=== PATIENT | male | born 1950 | race Caucasian/White ===

== ENCOUNTER 2017-01-15 10:22 | Emergency (ER) | payer MEDICARE, BC ==
[2017-01-15 13:58] VITALS: BP 152/96
--- NOTE | 2017-01-15 14:39 | EDM.PDOC ---
ED HPI GENERAL MEDICAL PROBLEM - General Chief Complaint: Cardiovascular Problem Stated Complaint: BACK PAIN THAT WENT INTO CHEST NOW OFF AND ON CHES Time Seen by Provider: 01/15/17 13:07 Source of Information: Reports: Patient History Limitations: Reports: No Limitations - History of Present Illness INITIAL COMMENTS - FREE TEXT/NARRATIVE: This gentleman comes in for some vague chest discomfort. About 6 weeks ago he was doing some stretching before playing golf and he started having some back pain he says it was strange like little bumps in his chest. They lasted about a second. Last night he had more of them. It does not seem to be associated with movement or deep breathing. They are not bad but rather just noticeable. He had some yesterday playing golf. He feels like he is okay although later he said he had some of these here in the ER. Last night he felt tired. He denies any history of heart disease. He did have a stress test 20 years ago and did well on it. He's had some stomach problems however. He's taken omeprazole for 20 years. He heard something on TV about omeprazole causing some kind of problems such as dementia and various other things. - Related Data Allergies Allergy/AdvReac Type Severity Reaction Status Date / Time hydrocodone bitartrate Allergy Rash Verified 05/14/15 10:18 [From Vicodin] Home Meds: Home Meds Fenofibrate Nanocrystallized [Tricor] 48 mg PO DAILY 06/14/13 [History] Omeprazole [Prilosec] 20 mg PO BID 06/14/13 [History] Simvastatin [Zocor] 40 mg PO BEDTIME 06/14/13 [History] Multivitamin [Multi Vitamin Daily] 1 tab PO DAILY 11/14/13 [History] Ascorbic Acid [Vitamin C] 1,000 mg PO DAILY 05/12/15 [History] Desloratidine [Clarinex] 5 mg PO DAILY 05/12/15 [History] Ibuprofen 800 mg PO TIDMEALS PRN 05/12/15 [History] Past Medical History Other Gastrointestinal History: Barrrets Esophagus Other Genitourinary History: prostate cancer 2010 - Past Surgical History GI Surgical History: Reports: Appendectomy Other Male Surgeries/Procedures: prostate cancer with removal of prostate 2010 Musculoskeletal Surgical History: Reports: Hip Replacement Social & Family History - Tobacco Use Smoking Status *Q: Never Smoker Used Tobacco, but Quit: Yes Month Tobacco Last Used: 1984 Second Hand Smoke Exposure: No - Alcohol Use Number of Drinks Per Day: 6 - Recreational Drug Use Recreational Drug Use: No ED ROS GENERAL - Review of Systems Review Of Systems: See Below Constitutional: Reports: No Symptoms HEENT: Reports: No Symptoms Respiratory: Reports: No Symptoms Cardiovascular: Reports: Chest Pain Endocrine: Reports: No Symptoms GI/Abdominal: Reports: Other (He has some chronic stomach problems she takes omeprazole. He does say he ate a bunch of spicy food yesterday) : Reports: No Symptoms ED EXAM, GENERAL - Physical Exam Exam: See Below Exam Limited By: No Limitations General Appearance: Alert, WD/WN (Very trim and athletic looking), No Apparent Distress Eye Exam: Bilateral Eye: Normal Inspection Throat/Mouth: Normal Inspection Head: Atraumatic Respiratory/Chest: Lungs Clear, Chest Non-Tender Cardiovascular: Regular Rate, Rhythm Peripheral Pulses: 2+: Radial (L), Radial (R), Posterior Tibial (L), Posterior Tibial (R) GI/Abdominal: Soft, Non-Tender Back Exam: Normal Inspection Extremities: Normal Inspection, Increased Warmth Neurological: Alert, No Motor/Sensory Deficits Psychiatric: Normal Affect Skin Exam: Warm, Dry Course - Vital Signs Last Recorded V/S: Last Vital Signs Temp 36.5 C 01/15/17 13:02 Pulse 71 01/15/17 13:57 Resp 14 01/15/17 13:57 BP 152/96 H 01/15/17 13:57 Pulse Ox 97 01/15/17 13:57 - Orders/Labs/Meds Orders: Active Orders 24 hr Category Date Time Status EKG Documentation Completion [RC] ASDIRECTED Care 01/15/17 13:17 Active Chest 2V [CR] Urgent Exams 01/15/17 13:17 Taken EKG 12 Lead [EK] Urgent Ther 01/15/17 13:17 Ordered Labs: Laboratory Tests 01/15/17 01/15/17 Range/Units 13:25 13:25 WBC 6.5 (4.5-11.0) K/uL RBC 4.88 (4.30-5.90) M/uL Hgb 15.2 H (12.0-15.0) g/dL Hct 43.4 (40.0-54.0) % MCV 89 (80-98) fL MCH 31 (27-31) pg MCHC 35 (32-36) % Plt Count 248 (150-400) K/uL Neut % (Auto) 66 (36-66) % Lymph % (Auto) 22 L (24-44) % [place] % (Auto) 9 H (2-6) % Eos % (Auto) 3 (2-4) % Baso % (Auto) 1 (0-1) % Sodium 141 (140-148) mmol/L Potassium 4.3 (3.6-5.2) mmol/L Chloride 105 (100-108) mmol/L Carbon Dioxide 29 (21-32) mmol/L Anion Gap 7.3 (5.0-14.0) mmol/L BUN 16 (7-18) mg/dL Creatinine 1.3 (0.8-1.3) mg/dL Est Cr Clr Drug Dosing 56.93 mL/min Estimated GFR (MDRD) 55 L (>60) Glucose 104 (74-106) mg/dL Calcium 8.8 (8.5-10.1) mg/dL Total Bilirubin 0.7 (0.2-1.0) mg/dL AST 25 (15-37) U/L ALT 43 (12-78) U/L Alkaline Phosphatase 53 (46-116) U/L Troponin I < 0.017 (0.000-0.056) ng/mL Total Protein 7.7 (6.4-8.2) g/dL Albumin 3.8 (3.4-5.0) g/dL Globulin 3.9 H (2.3-3.5) g/dL Albumin/Globulin Ratio 1.0 L (1.2-2.2) - Radiology Interpretation Free Text/Narrative:: Chest x-ray sure use normal heart size normal lung markings normal bone and soft tissues - Re-Assessments/Exams Free Text/Narrative Re-Assessment/Exam: 01/15/17 14:38 EKG shows sinus rhythm at 69 bpm there some borderline left axis deviation. Nothing that looks like ischemia Free Text/Narrative Re-Assessment/Exam: 01/15/17 14:39 Discussed lab findings. Nothing that explains the little jealous that he's been feeling. I don't think this is his heart. Most likely this is just some nerve irritation may be in his chest wall. I suggested that he follow-up with Dr. Kenney in the next few days. It might be reasonable to do a stress test on this patient Departure - Departure Time of Disposition: 14:40 Disposition: Home, Self-Care 01 Condition: Fair Clinical Impression: Non-cardiac chest pain Forms: ED Department Discharge Additional Instructions: The discomfort you are experiencing does not appear to be related to heart disease. Plan to follow-up with Dr. Kenney within the next few days. He can decide whether or not you need a stress test. - My Orders Last 24 Hours: My Active Orders 01/15/17 13:17 EKG Documentation Completion [RC] ASDIRECTED Chest 2V [CR] Urgent EKG 12 Lead [EK] Urgent - Assessment/Plan Last 24 Hours: My Active Orders 01/15/17 13:17 EKG Documentation Completion [RC] ASDIRECTED Chest 2V [CR] Urgent EKG 12 Lead [EK] Urgent
--- NOTE | 2017-01-17 09:57 | CR ---
Chest 2V HISTORY: Pain. COMPARISON: None FINDINGS: Artery excise and pulmonary vessels normal. No focal infiltrates or effusions.
== END 2017-01-15 14:50 | disposition home or self-care (01) ==
LOC: JP.ED 10:22
DX: R07.89 Other chest pain (principal); Z88.6 Allergy status to analgesic agent; Z79.899 Other long term (current) drug therapy; Z90.49 Acquired absence of other specified parts of digestive tract; Z96.649 Presence of unspecified artificial hip joint
CPT/HCPCS: 36415; 71020; 71020-26; 80053; 84484; 85025; 93005; 93010; 99284; 99284-25

== ENCOUNTER 2020-08-29 09:06 | Observation (INO) | payer MEDICARE, BC ==
[~2020-08-29 09:06] MED LIST: Bupivacaine 0.5% 50 ML MDV ONE; Dexamethasone 4 MG/ML SDV ONE; Glycopyrrolate 0.2 MG/ML 5 ML MDV ONE; Lidocaine 1% with EPINEPHrine 1:100,000 50 ML MDV ONE; Neostigmine Methylsulfate 1 MG/ML 5 ML Syringe ONE; Ondansetron 4 MG/2 ML SDV ONE; Propofol 200 MG/20 ML SDV ONE; Rocuronium 50 MG/5 ML Vial ONE; Succinylcholine 200 MG/10 ML MDV ONE
[2020-08-29] MEDS ORDERED: Sodium Chloride 0.9% 1,000 ML IV SCH (09:45)
[2020-08-29] MEDS ORDERED: ceFAZolin 2 GM in Premix Bag 1 BAG IV ONE (10:15)
[2020-08-29] MEDS ORDERED: Ropivacaine 44 ML, dexAMETHasone 8 MG, EPINEPHrine 0.4 MG, Sodium Chloride 0.9% 33.6 ML NERVRT SCH ×4 (10:30)
[2020-08-29] MEDS ORDERED: metroNIDAZOLE/Normal Saline 500 MG in Premix Bag 1 BAG IV ONE (10:30)
[2020-08-29] MEDS ORDERED: fentaNYL 250 MCG/5 ML SDV ONE ×2 (12:13→12:41)
[2020-08-29] MEDS ORDERED: Lactated Ringers 1,000 ML ONE (13:28)
[2020-08-29] MEDS ORDERED: hydrOXYzine HCL 100 MG/2 ML SDV IM PRN (13:46)
[2020-08-29] MEDS ORDERED: Acetaminophen/oxyCODONE 325-10 MG Tab PO PRN (13:46)
[2020-08-29] MEDS ORDERED: Bisacodyl 5 MG Tab PO PRN (13:46)
[2020-08-29] MEDS ORDERED: fentaNYL 100 MCG/2 ML SDV IVPUSH PRN (13:46)
[2020-08-29] MEDS ORDERED: Benzocaine/Cetylpyridinium/Menthol Lozenge MUCMEM PRN (13:46)
[2020-08-29] MEDS ORDERED: Acetaminophen 325 MG Tab PO PRN (13:46)
[2020-08-29] MEDS ORDERED: Docusate Sodium 100 MG Cap PO PRN (13:46)
[2020-08-29] MEDS ORDERED: diphenhydrAMINE 50 MG/ML SDV IVPUSH PRN (13:46)
[2020-08-29] MEDS ORDERED: Ketorolac 60 MG/2 ML SDV ONE (13:51)
[2020-08-29 17:14] VITALS: BP 140/80; PULSE 82
[2020-08-29] MEDS ORDERED: Scopolamine 1.5 MG Transdermal Patch TRDERM PRN (18:01)
--- NOTE | 2020-09-01 09:55 | OR ---
DATE OF PROCEDURE: 08/29/2020 SURGEON: Yovany Lombardi MD PROCEDURES: 1. Repair of diastasis recti, symptomatic using plication technique (75814). 2. Repair of umbilical/ventral hernia, 1.2 cm (37887). COMPLICATIONS: None. COVER ASSEMBLER: None. ANESTHETIC: General/local. RISKS: Risks, benefits, alternatives, and limitations including but not limited to infection, bleeding, and the high failure rate that can sometimes be associated with plication repair, my experience of the procedure, seroma, hematoma, requirement for reoperation, and other risks not listed here were explained to the patient, and they wished to proceed. PROCEDURE IN DETAIL: The patient was placed in supine position. The diastasis recti and its associated margins had been marked out preoperatively. This was almost all supraumbilical except for approximately 1 cm. The defect with respect to thinning of the fascia was approximately 5 cm. This was carried down with a 15 blade initially. Then, electrocautery was used to separate the fascia from the subcutaneous layers. This was beyond the rectus muscle for approximately 3 cm to 4 cm. The rectus muscles were then identified and marked. The hernia sac was identified and found to be incarcerated and with omentum. This defect was then opened. The abdominal contents were reduced back. The sac was removed, and this was closed with #1 Ethibond suture. Plication continued in a single layer anterior fashion using [id number] #1 Ethibond sutures. This was placed every 0.5 cm approximately. The plication continued from the sternum down to below the umbilicus covering the entire defect. Once this was created, no abnormal bleeding was noted. The flaps had been created by using electrocautery, and then area was inspected for evidence of fascial rent, which none was noted. The umbilicus was then transposed slightly medially. This was then sutured in place using Vicryl suture. 3-0 Vicryls were used to close the potential defect space and then a layer of 3-0 Vicryl was performed. The skin was closed with myrna. Dressings were applied. The patient tolerated the procedure well. Yovany Lombardi MD /[id number]
--- NOTE | 2020-09-01 10:10 | OR ---
DATE OF PROCEDURE: 08/29/2020 SURGEON: Yovany Lombardi MD PROCEDURES: 1. Bilateral transversus abdominis plane blocks. 2. Bilateral rectus sheath blocks. COMPLICATION: None. DENSITOMETER READER: None. RISKS: Risks, benefits, alternatives, and limitations including, but not limited to infection, bleeding, injury to bowel structures, and other risks not listed here were explained to the patient who wished to proceed. PROCEDURE IN DETAIL: The patient was placed in supine position. The left transversus plane was identified first. 20% of the solution was injected into this. This would be repeated under direct visualization for the right side also with 20%. Rectus muscles were also identified and injected in the posterior fashion in the classic fashion. During all 4 of these injections at no time did the needle moved past the peritoneum or not under direct visualization. The patient tolerated the procedure well using a total of 80% of the solution. Yovany Lombardi MD /[id number]
== END 2020-08-29 18:48 | disposition home or self-care (01) ==
LOC: JP.SDS 09:06 → JP.MS 13:46
PROVIDERS: ADMIT Surgery; ATTEND Surgery
DX: K43.6 Other and unspecified ventral hernia with obstruction, without gangrene (principal); M62.08 Separation of muscle (nontraumatic), other site; E78.5 Hyperlipidemia, unspecified; I10 Essential (primary) hypertension; K21.9 Gastro-esophageal reflux disease without esophagitis; K22.70 Barrett's esophagus without dysplasia; Z85.46 Personal history of malignant neoplasm of prostate; Z86.010 Personal history of colon polyps; G89.29 Other chronic pain; Z79.899 Other long term (current) drug therapy; Z88.8 Allergy status to other drugs, medicaments and biological substances; Z88.5 Allergy status to narcotic agent
CPT/HCPCS: A9270-GY; J0171; J0330; J0690; J1100; J1885; J2405; J2704; J2710; J2795; J3010; J3490; J7030; J7120

== ENCOUNTER → 2022-02-17 | Day surgery (SDC) | payer MEDICARE, BC ==
[~2022-02-17] MED LIST changes: +Acetaminophen/oxyCODONE 325-5 MG Tab PO ONE; +Bupivacaine 0.5% 30 ML SDV INJECT ONE; +Bupivacaine 0.5% 30 ML SDV ONE; -Bupivacaine 0.5% 50 ML MDV ONE; -Dexamethasone 4 MG/ML SDV ONE; -Glycopyrrolate 0.2 MG/ML 5 ML MDV ONE; +Lactated Ringers 1,000 ML IV SCH; -Lidocaine 1% with EPINEPHrine 1:100,000 50 ML MDV ONE; +Midazolam 1 MG/ML 2 ML SDV ONE; -Neostigmine Methylsulfate 1 MG/ML 5 ML Syringe ONE; +Nozin Nasal Sanitizer NASBOTH ONE; -Ondansetron 4 MG/2 ML SDV ONE; -Rocuronium 50 MG/5 ML Vial ONE; -Succinylcholine 200 MG/10 ML MDV ONE; +ceFAZolin 2 GM in Premix Bag 1 BAG IV ONE; +ceFAZolin 2 GM in Sodium Chloride 0.9% 50 ML IV ONE; +fentaNYL 100 MCG/2 ML SDV ONE
[2022-02-17 06:52] LABS: ESTIMATED GFR 53 mL/min (>60)
[2022-02-17 11:07] VITALS: BP 128/68; PULSE 16
== END ==
LOC: JP.SDS 05:53
PROVIDERS: ATTEND Specialist
DX: M75.101 Unspecified rotator cuff tear or rupture of right shoulder, not specified as traumatic (principal); I10 Essential (primary) hypertension; C61 Malignant neoplasm of prostate; K21.9 Gastro-esophageal reflux disease without esophagitis; Z88.5 Allergy status to narcotic agent; Z96.649 Presence of unspecified artificial hip joint; Z79.83 Long term (current) use of bisphosphonates; Z79.899 Other long term (current) drug therapy
CPT/HCPCS: 29826; 29827; 36415; 80053; 85027; 93005; A9270; C1713; J0690; J2250; J2704; J3010; J3490; J7120

== ENCOUNTER 2022-07-27 06:23 | Day surgery (SDC) | payer MEDICARE, BC ==
[2022-07-27] MEDS ORDERED: Lactated Ringers 1,000 ML IV SCH (07:00)
[2022-07-27] MEDS ORDERED: Propofol 200 MG/20 ML SDV ONE ×2 (07:36→08:26)
[2022-07-27] MEDS ORDERED: fentaNYL 50 MCG/ML SDV ONE (07:36)
[2022-07-27] MEDS ORDERED: Midazolam 1 MG/ML 2 ML SDV ONE (07:36)
[2022-07-27 09:41] VITALS: BP 126/83; PULSE 68
== END 2022-07-27 09:50 | disposition home or self-care (01) ==
LOC: JP.SDS 06:23
PROVIDERS: ATTEND Family Medicine
DX: Z12.11 Encounter for screening for malignant neoplasm of colon (principal); D12.2 Benign neoplasm of ascending colon; D12.0 Benign neoplasm of cecum; D12.4 Benign neoplasm of descending colon; K57.30 Diverticulosis of large intestine without perforation or abscess without bleeding; E78.5 Hyperlipidemia, unspecified; I73.9 Peripheral vascular disease, unspecified; C61 Malignant neoplasm of prostate; K21.9 Gastro-esophageal reflux disease without esophagitis; Z88.5 Allergy status to narcotic agent; Z98.890 Other specified postprocedural states; Z79.899 Other long term (current) drug therapy
CPT/HCPCS: 88305; J2250; J2704; J3010; J7120

== ENCOUNTER 2023-10-07 12:16 | Emergency (ER) | payer MEDICARE, BC ==
[2023-10-07 12:42] VITALS: BP 118/66; PULSE 91
[2023-10-07 13:21] LABS: APPEARANCE,URINE CLEAR (CLEAR); BILIRUBIN,URINE NEGATIVE (NEGATIVE); COLOR,URINE YELLOW (YELLOW); GLUCOSE,URINE NEGATIVE (NEGATIVE); KETONES,URINE NEGATIVE (NEGATIVE); LEUKOCYTE ESTERASE,URINE NEGATIVE (NEGATIVE); NITRITE,URINE NEGATIVE (NEGATIVE); OCCULT BLOOD,URINE NEGATIVE (NEGATIVE); PH,URINE 5.5 (5.0-8.0); PROTEIN,URINE NEGATIVE (NEGATIVE); UROBILINOGEN,URINE 0.2 EU/dL (0.2-1.0)
[2023-10-07 13:38] LABS: AMORPHOUS SEDIMENT,URINE NOT SEEN; BACTERIA,URINE RARE; EPITHELIAL CELLS,URINE NOT SEEN; MUCUS,URINE MANY; RBC,URINE 0-5 (0-5); WBC,URINE 0-5 (0-5)
== END 2023-10-07 13:44 | disposition home or self-care (01) ==
LOC: JP.ED 12:16
DX: R50.9 Fever, unspecified (principal); I10 Essential (primary) hypertension; E78.00 Pure hypercholesterolemia, unspecified; Z88.6 Allergy status to analgesic agent; Z79.899 Other long term (current) drug therapy
CPT/HCPCS: 81001; 99283

== ENCOUNTER 2024-08-12 08:47 | Inpatient (IN) | payer MEDICARE, BC ==
[2024-08-12 10:01] LABS: BASOPHILS ABSOLUTE AUTO 0.04 K/uL (0.00-0.10); BASOPHILS PERCENT AUTO 0.2 % (0.1-1.3); EOSINOPHILS ABSOLUTE AUTO 0.16 K/uL (0.00-0.40); HEMATOCRIT 43.1 % (38.4-49.7); HEMOGLOBIN 15.5 g/dL (12.9-16.9); IMMATURE GRAN ABSOLUTE AUTO 0.04 K/uL (0.00-0.23); IMMATURE GRAN PERCENT AUTO 0.2 % (0.0-0.7); LYMPHOCYTES ABSOLUTE AUTO 1.37 K/uL (0.8-3.3); LYMPHOCYTES PERCENT AUTO 8.2 % (11.4-47.7); MEAN CORPUSCULAR HEMOGLOBIN 32.6 pg (31.6-35.5); MEAN CORPUSCULAR VOLUME 90.7 fL (81.4-99.0); MONOCYTES ABSOLUTE AUTO 1.14 K/uL (0.20-0.90); MONOCYTES PERCENT AUTO 6.8 % (3.3-12.6); NEUTROPHILS ABSOLUTE AUTO 13.99 K/uL (1.0-7.6); NEUTROPHILS PERCENT AUTO 83.6 % (40.0-78.1); PLATELET COUNT,PLT 285 K/uL (130-375); RED BLOOD CELL COUNT 4.75 M/uL (4.14-5.76); WHITE BLOOD CELL COUNT,WBC 16.7 K/uL (3.2-11.0)
[2024-08-12] MEDS: Sodium Chloride 0.9% 1,000 ML IV ONE ×2 (10:09→12:31)
[2024-08-12] MEDS: Ondansetron 4 MG/2 ML SDV IVPUSH ONE (10:10)
[2024-08-12 10:20] LABS: A/G RATIO 0.8 (1.2-2.2); ALANINE AMINOTRANSFERASE,ALT 23 U/L (12-78); ALBUMIN 3.6 g/dL (3.4-5.0); ALKALINE PHOSPHATASE 48 U/L (46-116); ANION GAP 19.2 mmol/L (5.0-14.0); ASPARTATE AMNIOTRANSFERASE,AST 14 U/L (15-37); BILIRUBIN TOTAL 1.1 mg/dL (0.2-1.0); BLOOD UREA NITROGEN,BUN 35 mg/dL (7-18); C-REACTIVE PROTEIN 14.83 mg/dL (<0.50); CALCIUM 9.5 mg/dL (8.5-10.1); CARBON DIOXIDE,CO2 21 mmol/L (21-32); CHLORIDE,CL 101 mmol/L (100-108); CREATININE 2.8 mg/dL (0.8-1.3); ESTIMATED GFR 23 mL/min (>60); GLUCOSE RANDOM 141 mg/dL (74-106); POTASSIUM,K 4.2 mmol/L (3.6-5.2); PROTEIN TOTAL,TP 7.9 g/dL (6.4-8.2); SODIUM,NA 137 mmol/L (140-148)
[2024-08-12 10:28] LABS: APPEARANCE,URINE CLEAR (CLEAR); BILIRUBIN,URINE MODERATE (NEGATIVE); COLOR,URINE YELLOW (YELLOW); GLUCOSE,URINE 100 mg/dL (NEGATIVE); KETONES,URINE TRACE mg/dL (NEGATIVE); LEUKOCYTE ESTERASE,URINE NEGATIVE (NEGATIVE); NITRITE,URINE NEGATIVE (NEGATIVE); OCCULT BLOOD,URINE NEGATIVE (NEGATIVE); PROTEIN,URINE 100 mg/dL (NEGATIVE); UROBILINOGEN,URINE 0.2 EU/dL (0.2-1.0)
[2024-08-12 10:32] LABS: AMORPHOUS SEDIMENT,URINE NOT SEEN; BACTERIA,URINE NOT SEEN; EPITHELIAL CELLS,URINE FEW; MUCUS,URINE MODERATE; RBC,URINE 0-5 (0-5); WBC,URINE 0-5 (0-5)
[2024-08-12] MEDS: Ertapenem 1 GM in Sodium Chloride 0.9% 50 ML IV SCH (12:32)
[2024-08-12] MEDS ORDERED: Piperacillin/Tazobactam 3.375 GM in Sodium Chloride 0.9% 50 ML IV SCH (14:15)
[2024-08-12] MEDS ORDERED: Piperacillin/Tazobactam/Dext 4.5 GM in Premix Bag 1 BAG IV ONE (14:30)
[2024-08-12] MEDS ORDERED: Ondansetron 4 MG/2 ML SDV IV PRN (15:23)
[2024-08-12] MEDS ORDERED: Sennosides/Docusate Sodium 50-8.6 MG Tab PO PRN (15:23)
[2024-08-12] MEDS ORDERED: Acetaminophen 325 MG Tab PO PRN (15:23)
[2024-08-12] MEDS ORDERED: Magnesium Hydroxide 400 MG/5 ML Susp 30 ML Cup PO PRN (15:23)
[2024-08-12] MEDS ORDERED: HYDROmorphone 1 MG/ML Syringe IVPUSH PRN (15:23)
[2024-08-12] MEDS ORDERED: Ondansetron 4 MG Tab.DIS PO PRN (15:23)
[2024-08-12] MEDS ORDERED: oxyCODONE 5 MG Tab PO PRN (15:23)
[2024-08-12] MEDS ORDERED: HYDROmorphone 0.5 MG/0.5 ML Syringe IVPUSH PRN (15:28)
[2024-08-12] MEDS: Sodium Chloride 0.9% 1,000 ML IV SCH (16:14)
[2024-08-12] MEDS ORDERED: Piperacillin/Tazobactam/Dext 4.5 GM in Premix Bag 1 BAG IV SCH (18:30)
[2024-08-12] MEDS: atorvaSTATin 20 MG Tab PO SCH (20:01)
[2024-08-12] MEDS: Lactobacillus Rhamnosus GG (Probiotic) Cap PO SCH (20:01)
[2024-08-12] MEDS ORDERED: Non-Formulary Medication 1 Each (Simvastatin [Zocor] 40 MG Tablet) PO SCH (21:00)
[2024-08-13 06:05] LABS: HEMATOCRIT 36.1 % (38.4-49.7); HEMOGLOBIN 12.7 g/dL (12.9-16.9); MEAN CORPUSCULAR HEMOGLOBIN 32.5 pg (31.6-35.5); MEAN CORPUSCULAR HGB CONC 35.2 g/dL (31.6-35.5); MEAN CORPUSCULAR VOLUME 92.3 fL (81.4-99.0); RED BLOOD CELL COUNT 3.91 M/uL (4.14-5.76); WHITE BLOOD CELL COUNT,WBC 11.7 K/uL (3.2-11.0)
[2024-08-13 06:17] LABS: ANION GAP 8.2 mmol/L (5.0-14.0); CALCIUM 8.4 mg/dL (8.5-10.1); CREATININE 1.4 mg/dL (0.8-1.3); EST CRCL DRUG DOSING (CG) 47.8 mL/min; MAGNESIUM 1.8 mg/dL (1.8-2.4); POTASSIUM,K 4.7 mmol/L (3.6-5.2)
[2024-08-13] MEDS: Fenofibrate,Micronized 67 MG Cap PO SCH (08:37)
[2024-08-13] MEDS: Pantoprazole 40 MG Tab.CR PO SCH (08:37)
[2024-08-13] MEDS ORDERED: FENOFIBRATE NANOCRYSTALLIZED 48 MG PO SCH (09:00)
[2024-08-13] MEDS: Piperacillin/Tazobactam/Dext 4.5 GM in Premix Bag 1 BAG IV ONE (09:45)
[2024-08-13] MEDS: Piperacillin/Tazobactam/Dext 4.5 GM in Premix Bag 1 BAG IV SCH (13:00)
[2024-08-14 06:11] LABS: HEMATOCRIT 34.9 % (38.4-49.7); HEMOGLOBIN 12.3 g/dL (12.9-16.9); MEAN CORPUSCULAR HGB CONC 35.2 g/dL (31.6-35.5); MEAN CORPUSCULAR VOLUME 90.9 fL (81.4-99.0); RED BLOOD CELL COUNT 3.84 M/uL (4.14-5.76); WHITE BLOOD CELL COUNT,WBC 8.9 K/uL (3.2-11.0)
[2024-08-14 06:24] LABS: ANION GAP 9.6 mmol/L (5.0-14.0); CALCIUM 8.7 mg/dL (8.5-10.1); CREATININE 1.3 mg/dL (0.8-1.3); EST CRCL DRUG DOSING (CG) 51.47 mL/min; POTASSIUM,K 4.2 mmol/L (3.6-5.2)
[2024-08-15 05:15] VITALS: PULSE 67
[2024-08-15] MEDS: Lisinopril 10 MG Tab PO SCH (08:02)
[2024-08-15 08:04] VITALS: BP 130/69
== END 2024-08-15 10:56 | disposition home or self-care (01) | DRG 683 ==
LOC: JP.ED 08:47 → JP.MS 14:41
PROVIDERS: ADMIT Internal Medicine; ATTEND Hospitalist
DX: N17.9 Acute kidney failure, unspecified (principal); K57.20 Diverticulitis of large intestine with perforation and abscess without bleeding; E78.00 Pure hypercholesterolemia, unspecified; I10 Essential (primary) hypertension; H91.90 Unspecified hearing loss, unspecified ear; K21.9 Gastro-esophageal reflux disease without esophagitis; M19.90 Unspecified osteoarthritis, unspecified site; Z96.649 Presence of unspecified artificial hip joint; Z88.8 Allergy status to other drugs, medicaments and biological substances; Z79.899 Other long term (current) drug therapy; Z86.0100 Personal history of colon polyps, unspecified; Z85.46 Personal history of malignant neoplasm of prostate; Z90.49 Acquired absence of other specified parts of digestive tract; Z98.890 Other specified postprocedural states; Z87.891 Personal history of nicotine dependence
CPT/HCPCS: 36415; 74176; 80053; 81001; 83605; 84145; 85025; 86140; 87046; 87427 ×2; 87493; 96361; 96365; 96375; 99285; J1335; J2405; J7030 ×2; 80048; 83735; 85027; 99222; 99231; 99232; 99238; A9270-GY; J2543